=== PATIENT | male | born 1990 | race Caucasian/White ===

== ENCOUNTER 2018-02-18 20:11 | Observation (INO) | payer BC ==
[2018-02-18] MEDS ORDERED: SODIUM CHLORIDE 0.9% 500 ML INFUS.BAG IV ONE (20:24)
[2018-02-18] MEDS ORDERED: ACETAMINOPHEN 1000 MG/100 ML VIAL (NON FORMULARY) IVPB ONE (20:25)
--- NOTE | 2018-02-18 20:49 | PDOC ---
History of Present Illness - General Chief Complaint: Weakness Stated Complaint: COUGHING/FAINTING Time Seen by Provider: 02/18/18 20:23 History Source: Patient, Family Exam Limitations: No Limitations - History of Present Illness Initial Comments: This is a 27 YOM who p/w nonproductive cough x2 days with recurrent syncope tonight after coughing fits, now with 10/10 generalized headache which started abruptly. He denies any h/o similar headaches. His only recent medication has been diclofenac which he started in the past couple of days. He additionally notes intermittent SOB associated with the cough and syncope, as well as nausea and dry heaves tonight, but he denies any recent f/c, d/c, n/t/focal weakness, vision change, slurred speech, facial droop, neck pain, chest pain, palpitations , falls/injuries, or other symptoms. Past History - Past Medical History Allergies/Adverse Reactions: Allergies Allergy/AdvReac Type Severity Reaction Status Date / Time No Known Allergies Allergy Verified 02/18/18 23:58 Home Medications: Ambulatory Orders Fluconazole 0 mg PO DAILY 02/18/18 - Suicide/Smoking/Psychosocial Hx Smoking History: Never smoked Hx Alcohol Use: No Drug/Substance Use Hx: No Review of Systems - Review of Systems Able to Perform ROS?: Yes Constitutional: Yes: Malaise. No: Chills, Fever, Unexplained wgt Loss HEENTM: No: Nose Congestion, Throat Pain Respiratory: Yes: Cough, Shortness of Breath Cardiac (ROS): Yes: Syncope. No: Chest Pain, Palpitations ABD/GI: Yes: Nausea, Vomiting. No: Constipated, Diarrhea : No: Burning, Dysuria Musculoskeletal: No: Back Pain, Neck Pain Integumentary: No: Bruising, Rash Neurological: Yes: Headache. No: Numbness, Tingling, Weakness, Dizziness Endocrine: No: Unexplained Weight Gain, Unexplained Weight Loss *Physical Exam - Vital Signs Last Vital Signs Temp Pulse Resp BP Pulse Ox 98.8 F 89 20 135/81 99 02/18/18 20:22 02/18/18 20:22 02/18/18 20:22 02/18/18 20:22 02/18/18 20:22 - Physical Exam General Appearance: Yes: Nourished, Appropriately Dressed, Obese, Other ( nontoxic and well but a bit drowsy appearing adult male accompanied by family at bedside, answering questions appropriately initially with a bit of lag time between question and answer but this improves over the course of interview). No : Apparent Distress HEENT: positive: EOMI, LARON, Normal ENT Inspection, Normal Voice, Hearing Grossly Normal. negative: Scleral Icterus (R), Scleral Icterus (L), Nasal Congestion Neck: positive: Trachea midline, Supple. negative: Tender, Rigid Respiratory/Chest: positive: Lungs Clear, Normal Breath Sounds. negative: Respiratory Distress, Crackles, Rhonchi, Stridor, Wheezing Cardiovascular: positive: Regular Rhythm, Regular Rate, S1, S2, Edema. negative : JVD, Murmur Gastrointestinal/Abdominal: positive: Normal Bowel Sounds, Soft. negative: Tender, Organomegaly, Pulsatile Mass, Guarding Musculoskeletal: positive: Normal Inspection. negative: Decreased Range of Motion, Vertebral Tenderness Extremity: positive: Normal Capillary Refill, Normal Inspection, Normal Range of Motion. negative: Tender, Cyanosis Integumentary: positive: Normal Color, Dry, Warm. negative: Erythema, Rash, Bruising Neurologic: positive: surgery aide II-XII NML intact, Fully Oriented, Alert, Normal Mood/ Affect, Normal Response, Motor Strength 5/5. negative: EOM Palsy, Facial Droop , Numbness, Sensory Deficit, Confused, Disoriented Heart Score/ECG Review #1 NSR rate of 72 with normal axis and intervals, isolated TWI in III, T-wave flattening in aVF, no other ischemic ST-T changes, no other abnormalities noted. ED Treatment Course - LABORATORY CBC & Chemistry Diagram: 02/18/18 20:45 02/18/18 20:45 Medical Decision Making - Medical Decision Making Syncope: Adult male Pt p/w abrupt transient LOC with loss of postural tone, followed by spontaneous recovery, consistent with syncope. Initial Vital Signs Temp Pulse Resp BP Pulse Ox 98.8 F 89 20 135/81 99 02/18/18 20:22 02/18/18 20:22 02/18/18 20:22 02/18/18 20:22 02/18/18 20:22 Exam: As noted in Physical Exam section. DDX IBNLT: reflex (neurocardiogenic e.g. vasovagal; situational e.g. micturition /post-tussive/post-exercise; carotid sinus hypersensitivity), cardiovascular ( arrhythmia e.g. sick sinus syndrome, conduction abnormality e.g. SVT/WPW/Brugada /long QT/ventricular dysrhythmia, structural heart disease e.g. valvular disease /HOCM/left atrial myxoma/FL; PE; cardiac tamponade), orthostatic hypotension ( volume depletion e.g. hemorrhage/vomiting/diarrhea/diuretics; drugs e.g. vasodilators/eyssv-0-bqlcdrib/clonidine/phenothiazines like Haldol; autonomic failure e.g. spinal cord injury/DM neuropathy/Parkinsons), or other causes not true syncope d/t subsequent neuro deficit (TIA/CVA, SAH, seizure, metabolic/ electrolyte derangement e.g. DM/DKA tend to cause gradual slide into unconsciousness), infection/sepsis/vitals abnormalities, pulmonary HTN, etc. W/U ordered: EKG CXR Head CT CBCD CMP Mg Phos Cardiac Panel UA UCx FOBT TX ordered: IVF, O2, monitor EKG: Reviewed; results as noted in ECG Review section. CXR: Nothing acute CT Head: Nothing acute CTA Brain: Nothing acute Laboratory Tests 02/18/18 02/18/18 02/18/18 20:45 20:45 20:45 WBC 13.3 H RBC 4.62 Hgb 12.8 Hct 38.6 MCV 83.5 MCH 27.6 MCHC 33.1 RDW 14.2 Plt Count 260 MPV 8.6 Absolute Neuts (auto) 9.5 Neutrophils % 71.3 Lymphocytes % 19.5 Monocytes % 7.9 Eosinophils % 0.8 Basophils % 0.5 Nucleated RBC % 0 PT with INR 12.20 INR 1.08 Sodium 144 Potassium 3.7 Chloride 104 Carbon Dioxide 30 Anion Gap 10 BUN 22 H Creatinine 1.2 Creat Clearance w eGFR > 60 Random Glucose 97 Calcium 8.5 Total Bilirubin 0.3 AST 29 ALT 44 Alkaline Phosphatase 59 Total Protein 7.2 Albumin 4.1 Blood Type Antibody Screen 02/18/18 20:45 WBC RBC Hgb Hct MCV MCH MCHC RDW Plt Count MPV Absolute Neuts (auto) Neutrophils % Lymphocytes % Monocytes % Eosinophils % Basophils % Nucleated RBC % PT with INR INR Sodium Potassium Chloride Carbon Dioxide Anion Gap BUN Creatinine Creat Clearance w eGFR Random Glucose Calcium Total Bilirubin AST ALT Alkaline Phosphatase Total Protein Albumin Blood Type O POSITIVE Antibody Screen Negative Reassessment: Patient states feeling well but throat remains irritated/itchy. ADMIT The Pt is unsafe for discharge at this time given multiple reported syncopal episodes. They require further hospital observation, workup, and treatment. Microblog sent to [facility] for admission at 02/18/18 23:26. Decision to Admit order placed without attending name at 02/18/18 23:34. 02/19/18 00:56 Spoke with [facility] apparel trimmings sales representative Dr. Hernández. Patient admitted to [facility] under Dr. Cristina. Decision to Admit order finalized. *DC/Admit/Observation/Transfer Diagnosis at time of Disposition: Cough Syncope Qualifiers: Syncope type: unspecified Qualified Code(s): R55 - Syncope and collapse Nausea and vomiting Qualifiers: Vomiting type: unspecified Vomiting Intractability: non-intractable Qualified Code(s): R11.2 - Nausea with vomiting, unspecified - Discharge Dispostion Condition at time of disposition: Guarded Decision to Admit order: Yes - Referrals - Patient Instructions - Post Discharge Activity
[2018-02-18 20:58] LABS: BASO % 0.5 % (0-2.0); EOS % 0.8 % (0-4.5); HEMATOCRIT 38.6 % (35.4-49); HEMOGLOBIN 12.8 GM/dL (11.7-16.9); LYMPH % 19.5 % (8-40); MCH 27.6 pg (25.7-33.7); MCHC 33.1 g/dl (32.0-35.9); MEAN CELL VOLUME 83.5 fl (80-96); MEAN PLT VOLUME 8.6 fl (7.5-11.1); MONO % 7.9 % (3.8-10.2); NEUT % 71.3 % (42.8-82.8); PLATELET COUNT 260 K/MM3 (134-434); RBC 4.62 M/mm3 (4.00-5.60); RDW 14.2 % (11.9-15.9); WHITE BLOOD COUNT 13.3 K/mm3 (4.0-10.0)
[2018-02-18 21:08] LABS: INR 1.08 (0.83-1.09); PROTHROMBIN TIME (PATIENT) 12.2 SEC (9.7-13.0)
[2018-02-18 21:27] LABS: ALBUMIN 4.1 g/dl (3.4-5.0); ANION GAP 10 (8-16); BILIRUBIN,TOTAL 0.3 mg/dL (0.2-1.0); BLOOD UREA NITROGEN 22 mg/dL (7-18); CALCIUM 8.5 mg/dL (8.5-10.1); CHLORIDE 104 mmol/L (98-107); CO2 30 mmol/L (21-32); CREATININE 1.2 mg/dL (0.7-1.3); GLUCOSE,RANDOM 97 mg/dL (74-106); POTASSIUM 3.7 mmol/L (3.5-5.1); SGOT/AST 29 U/L (15-37); SGPT/ALT 44 U/L (12-78); SODIUM 144 mmol/L (136-145); TOT PROT 7.2 g/dl (6.4-8.2)
[2018-02-18 21:28] LABS: ALK PHOS 59 U/L (45-117)
[2018-02-18] MEDS ORDERED: ACETAMINOPHEN INJECTION 100 ML IVPB ONE (21:36)
--- NOTE | 2018-02-18 21:39 | PDOC ---
Attending Attestation - HPI HPI: 02/18/18 21:52 The patient is a 27 year old male, with no significant PMH, who presents to the emergency department with two days of productive cough and recurrent syncopal episodes tonight secondary to coughing fits. The patient also reports a sudden onset of diffuse headache rated 10/10, non radiating, beginning today. The patient states he has had intermittent shortness of breath secondary to the cough/ syncopal episodes as well as nausea without vomit. The patient denies chest pain, palpitations, and dizziness. Denies fever, chills, vomit, diarrhea and constipation. Denies dysuria, frequency, urgency and hematuria. Denies slurred speech, numbness, tingling or loss of sensation. Allergies: NKA - Physicial Exam PE: 02/18/18 21:53 GENERAL: Awake, alert, and fully oriented, in no acute distress HEAD: No signs of trauma EYES: PERRLA, EOMI, sclera anicteric, conjunctiva clear ENT: Auricles normal inspection, hearing grossly normal, nares patent, oropharynx clear without exudates. Moist mucosa NECK: Normal ROM, supple, no lymphadenopathy, JVD, or masses LUNGS: Breath sounds equal, clear to auscultation bilaterally. No wheezes, and no crackles HEART: Regular rate and rhythm, normal S1 and S2, no murmurs, rubs or gallops ABDOMEN: Soft, nontender, normoactive bowel sounds. No guarding, no rebound. No masses EXTREMITIES: Normal range of motion, no edema. No clubbing or cyanosis. No cords, erythema, or tenderness NEUROLOGICAL: Cranial nerves II through XII grossly intact. Normal speech, normal gait <Cullen Bae - Last Filed: 02/18/18 21:52> - Resident Resident Name: Mima Robison - ED Attending Attestation I have performed the following: I have examined & evaluated the patient, The case was reviewed & discussed with the resident, I agree w/resident's findings & plan - Medical Decision Making 02/18/18 21:[address] is normal, though there is some shift to the right side of the falx. We will send him for a CTA, as his labs have returned normal. 02/18/18 21:47 Pt has a WBC of 13 02/18/18 22:29 Patient Name: ALEJANDRA SALMERON THIS IS A PRELIMINARY REPORT FROM [facility] DATE OF SERVICE: 2018-02-18 21:09:00 IMAGES: [id number] Exam: CT head without IV contrast. Clinical indication:Sudden onset severe headache. Comparison:None available. Technique: Axial unenhanced CT images from the skull base through the brain were obtained followed by coronal and sagital reformats. Findings: The visualized bony structures are unremarkable. The visualized paranasal sinuses and mastoid air cells are clear. There is no evidence of intra-or extra-axial hemorrhage. The ventricles and basilar cisterns are unremarkable. There is no evidence of intracranial mass, acute infarct, or midline shift. Impression: Negative unenhanced CT of the brain. Individualized dose optimization techniques were used for this CT. THIS DOCUMENT HAS BEEN ELECTRONICALLY SIGNED 02/19/18 00:32 Pt's portable CXR normal. CTA brain: Patient Name: ALEJANDRA SALMERON THIS IS A PRELIMINARY REPORT FROM [facility] DATE OF SERVICE: 2018-02-18 21:59:45 IMAGES: [id number] EXAM: CT angiogram of the of the head with IV contrast. Clinical indication: Ruptured aneurysm. Comparison is made to the CT of the head dated the same day. Technique: Axial IV contrast-enhanced CT images through the head were obtained followed by coronal and sagittal reformats. In addition, maximum projection maximum intensity pixel multiplanar imaging of the intracranial arterial system was performed. Findings: The study is sub-optimal from a CT angiogram standpoint as most of the contrast is already into the venous system. The venous system demonstrates greater enhancement than the arterial system. The visualized portions of the bilateral internal carotid arteries are patent. Cannot evaluate the cavernous portions for evaluation of aneurysms. The visualized portions of the bilateral vertebral arteries are patent and codominant. The basilar artery is grossly unremarkable without obvious aneurysm. The bilateral posterior cerebral arteries are grossly unremarkable. The bilateral middle cerebral arteries are grossly unremarkable without obvious aneurysm. The bilateral anterior cerebral arteries are unremarkable without obvious aneurysm. There is no evidence of abnormal intracranial enhancement. There is no obvious evidence of intra-or extra-axial hemorrhage. Impression: 1. Severely limited study due to the phase of contrast enhancement. 2. No gross evidence of obvious intracranial aneurysm. If there is high clinical concern for aneurysm then a repeat CT angiogram with improved bolus timing is recommended. Pt will be admitted to observation for repeat brief syncopal episodes. <Breann Babb - Last Filed: 02/19/18 00:35> Attestations - Attestations 02/18/18 21:53 Documentation prepared by Cullen Bae, acting as medical billing specialist for Breann Babb MD. <Cullen Bae - Last Filed: 02/18/18 21:52>
--- NOTE | 2018-02-19 00:09 | PN ---
Teaching Attending Note Name of Resident: Vignesh Killian ATTENDING PHYSICIAN STATEMENT I saw and evaluated the patient. I reviewed the resident's note and discussed the case with the resident. I agree with the resident's findings and plan as documented. SUBJECTIVE: Patient is a 27 year old man who presents with nonproductive cough for 2 days associated with recurrent syncope tonight after coughing fits. Also now has 10/ 10 generalized headache which started abruptly. He denies any history of similar headaches. Started having runny nose 4 days ago, followed by sore throat and then the cough. His only recent medication has been diclofenac which he started in the past couple of days. He additionally notes intermittent SOB associated with the cough and syncope, as well as nausea and dry heaves tonight. He had the first episode of syncope 4 years. His father had a similar problem that also included syncope. No recent foreign travels or sick contacts. He does not smoke but his room mate smokes. Denies focal weakness, vision change , slurred speech, facial droop, neck pain, chest pain, or palpitations. OBJECTIVE: Alert and in no acute distress. Obese Vital Signs Period Temp Pulse Resp BP Sys/Rodríguez Pulse Ox Last 24 Hr 98.8 F 89 20 135/81 99 HEENT: No Jaundice, eye redness or discharge, PERRLA, EOMI. Normocephalic, atraumatic. External ears are normal and hearing is grossly intact. No nasal discharge. Neck: Supple, nontender. No palpable adenopathy or thyromegaly. No JVD Chest: Good effort. Clear to auscultation and percussion. Heart: Regular. No S3, rub or murmur Abdomen: Not distended, soft, nontender and no HSM. No rebound or guarding. Normoactive bowel sounds. Ext: Peripheral pulses intact. No leg edema. Skin: Warm and dry. No petechiae, rash or ecchymosis. Neuro: Alert. Oriented x3. CN 2-12 grossly intact. Sensation grossly intact in all four extremities and DTR are symmetric. Home Medications Medication Instructions Recorded Fluconazole 0 mg PO DAILY 02/18/18 Abnormal Lab Results 02/18/18 02/18/18 20:45 20:45 WBC 13.3 H BUN 22 H ASSESSMENT AND PLAN: 1. Syncope - Etiology unclear, but appears to be vasovagal. Head CT scan is negative. CXR shows cardiomegaly, increased interstitial marking, RLL infiltrate and blunted left CP angle. EKG does not show any signficant abnormality. Will get chest CT to rule out a precipitating chest infection, ECHO , EEG and monitor on telemetry. Carotid doppler, Brain MRI/MRA, neurology and cardiology consults. 2. Exposure to Tobacco second hand smoke - Patient counseled on the risks of second hand smoke exposure and urged to avoid it by any means necessary. 3. Obesity - Will provide patient all the necessary assistance , counseling and positive reinforcement to facilitate weight loss. Consult scientist immunology. 4. DVT prophylaxis - Lovenox 40 mg SQ q 24 hours. 5. Advance directives - Full code
[2018-02-19 00:31] LABS: COCAINE, UR NEGATIVE ng/ml (CUTOFF=300); METHADONE, UR NEGATIVE ng/ml (CUTOFF=300); OPIATES, URI NEGATIVE ng/ml (CUTOFF=300); PHENCYCLIDINE,URINE NEGATIVE ng/ml (CUTOFF=25); URINE AMPHETAMINES NEGATIVE ng/ml (CUTOFF=500); URINE BARBITURATES NEGATIVE ng/ml (CUTOFF=200); URINE BENZODIAZEPINES NEGATIVE ng/ml (CUTOFF=200)
--- NOTE | 2018-02-19 02:24 | HP ---
CHIEF COMPLAINT: PCP: HISTORY OF PRESENT ILLNESS: 27 y/o M w/ PMH of long hx of syncopal episodes associated w/ cough, p/w productive cough, sore throat, subj fevers, chills, and a few episodes of NBNB emesis x3 days with recurrent syncope specifically occurring after coughing. Tonight has had 11 episodes each one lasing a few seconds as noted by family members. Has been having multiple coughing fits and tonight having generalized headache which started abruptly. He denies any h/o similar headaches. Also experiencing intermittent SOB associated with the cough and syncope, as well as nausea and dry heaves tonight, but he denies any CP, diarrhea, abd pain, urinary sxs, focal weakness, vision change, slurred speech, facial droop, neck pain Pt endorses a long hx of passing out w/ coughing fits, 1st time ~4years ago, and states that it runs in his family, both his dad and sister get it. His only recent medication has been diclofenac which he says he finished. Of note, pt says 3 wks ago he went to hospital in [place] after having had episode of dark bloody vomit. pt said he was working a lot that weekend and didnt have time to eat food but drank pplenty of liquids. he woke up vomited and then came to hospital. He says his FOBT was neg and they sent him home telling him he probably damaged a blood vessel and that he was throwing up dried blood. Pt endorses chronic heartburn. 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 HEENT: NCAT, PERRL, extraocular movements intact, sclera anicteric, conjunctiva clear. MMM NECK: Normal range of motion, supple without lymphadenopathy, JVD, or masses. LUNGS: CTAB. No wheezes. No accessory muscle use. HEART: RRR, normal S1 and S2 without m/r/g ABDOMEN: Soft, NTND +BS, no guarding, no rebound, no masses. MUSCULOSKELETAL: Normal range of motion at all joints. No bony deformities or tenderness. UPPER EXTREMITIES: 2+ pulses, warm, well-perfused. No cyanosis. No clubbing. No peripheral edema. LOWER EXTREMITIES: 2+ pulses, warm, well-perfused. No calf tenderness. no edema NEUROLOGICAL: Cranial nerves II-XII intact. Normal speech. gait not observed PSYCHIATRIC: Cooperative. Good eye contact. Appropriate mood and affect. SKIN: Warm, dry, normal turgor, no rashes or lesions noted, normal capillary refill. Laboratory Results - last 24 hr 02/18/18 02/18/18 02/18/18 20:45 20:45 20:45 WBC 13.3 H RBC 4.62 Hgb 12.8 Hct 38.6 MCV 83.5 MCH 27.6 MCHC 33.1 RDW 14.2 Plt Count 260 MPV 8.6 Absolute Neuts (auto) 9.5 Neutrophils % 71.3 Lymphocytes % 19.5 Monocytes % 7.9 Eosinophils % 0.8 Basophils % 0.5 Nucleated RBC % 0 PT with INR 12.20 INR 1.08 Sodium 144 Potassium 3.7 Chloride 104 Carbon Dioxide 30 Anion Gap 10 BUN 22 H Creatinine 1.2 Creat Clearance w eGFR > 60 Random Glucose 97 Calcium 8.5 Total Bilirubin 0.3 AST 29 ALT 44 Alkaline Phosphatase 59 Total Protein 7.2 Albumin 4.1 Opiates Screen Methadone Screen Barbiturate Screen Phencyclidine Screen Ur Amphetamines Screen MDMA (Ecstasy) Screen Benzodiazepines Screen Cocaine Screen U Marijuana (THC) Screen Blood Type Antibody Screen 02/18/18 02/18/18 20:45 23:50 WBC RBC Hgb Hct MCV MCH MCHC RDW Plt Count MPV Absolute Neuts (auto) Neutrophils % Lymphocytes % Monocytes % Eosinophils % Basophils % Nucleated RBC % PT with INR INR Sodium Potassium Chloride Carbon Dioxide Anion Gap BUN Creatinine Creat Clearance w eGFR Random Glucose Calcium Total Bilirubin AST ALT Alkaline Phosphatase Total Protein Albumin Opiates Screen Negative Methadone Screen Negative Barbiturate Screen Negative Phencyclidine Screen Negative Ur Amphetamines Screen Negative MDMA (Ecstasy) Screen Negative Benzodiazepines Screen Negative Cocaine Screen Negative U Marijuana (THC) Screen Negative Blood Type O POSITIVE Antibody Screen Negative ASSESSMENT/PLAN: 27 y/o M w/ PMH of syncopal episodes associated w/ cough p/w productive cough, sore throat, subj fevers and a few episodes of NBNB emesis x3 days with recurrent syncope specifically occurring after coughing #Syncope - unclear etiology, but likely vasovagal. CXR shows cardiomegaly, increased interstitial marking, RLL infiltrate and blunted angles. Head CT scan is negative. EKG does not show any significant abnormality. -chest CT to r/o infectious cause -ECHO -monitor on telemetry. -Carotid doppler -neurology and cardiology consults. -may consider Brain MRI/MRA -may consider EEG GERD -protonix RON? - poor PO intake -gentle hydration IV NS 75cc/hr #Obesity -provide assistance, counseling and positive reinforcement to facilitate weight loss. -Consult manual equipment mechanic #FEN -gentle hydration IV NS 75cc/hr -replete lytes as needed -regular diet #DVTppx SQH 5000U TID #Dispo -admit to tele obs -Full code Visit type - Emergency Visit Emergency Visit: Yes ED Registration Date: 02/18/18 Care time: The patient presented to the Emergency Department on the above date and was hospitalized for further evaluation of their emergent condition. - New Patient This patient is new to me today: Yes Date on this admission: 02/19/18 - Critical Care Critical Care patient: No Hospitalist Screening - Colonoscopy Questionnaire Colonoscopy Questionnaire: Colonoscopy Questionnaire - Patient: 50 - 75 years old and never had a screening colonoscopy: Unknown History of colon or rectal polyps, or CA: Unknown History of IBD, Crohn's disease or UC: Unknown History of abdominal radiation therapy as a child: Unknown - Relative: 1 with colon or rectal CA, or polyps at age 60 or younger: Unknown Colon or rectal CA diagnosed at age 45 or younger: Unknown Multiple relatives with colon or rectal CA: Unknown - Outcome: Screening Result: Negative Screen
[2018-02-19] MEDS ORDERED: HEPARIN NA (PORCINE) 5,000 UNITS/ML 1ML VIAL ONE (02:31)
[2018-02-19] MEDS: HEPARIN NA (PORCINE) 5,000 UNITS/ML 1ML VIAL SQ SCH ×3 (02:43→21:33)
[2018-02-19] MEDS: SODIUM CHLORIDE 1,000 ML IV SCH ×2 (02:43→17:12)
[2018-02-19 06:43] LABS: INR 1.04 (0.83-1.09); PROTHROMBIN TIME (PATIENT) 11.8 SEC (9.7-13.0)
[2018-02-19 06:46] LABS: ACTIVATED PTT 28.9 SECONDS (25.2-36.5)
[2018-02-19 06:58] LABS: ALBUMIN 3.7 g/dl (3.4-5.0); ALK PHOS 65 U/L (45-117); ANION GAP 6 (8-16); BILIRUBIN,TOTAL 0.3 mg/dL (0.2-1.0); BLOOD UREA NITROGEN 16 mg/dL (7-18); CALCIUM 8.2 mg/dL (8.5-10.1); CHLORIDE 104 mmol/L (98-107); CO2 32 mmol/L (21-32); CREATININE 1.2 mg/dL (0.7-1.3); GLUCOSE,RANDOM 109 mg/dL (74-106); MAGNESIUM 2.2 mg/dL (1.8-2.4); POTASSIUM 3.5 mmol/L (3.5-5.1); SGOT/AST 32 U/L (15-37); SGPT/ALT 46 U/L (12-78); SODIUM 142 mmol/L (136-145); TOT PROT 6.9 g/dl (6.4-8.2)
--- NOTE | 2018-02-19 08:24 | CON.CARD ---
Consult Consult Specialty:: Cardiology Reason for Consultation:: syncope - History of Present Illness History of Present Illness: 27 y/o M w/ PMH of long hx of syncopal episodes associated w/ cough, p/w productive cough, sore throat, subj fevers, chills, and a few episodes of NBNB emesis x3 days with recurrent syncope specifically occurring after coughing. Tonight has had 11 episodes each one lasing a few seconds as noted by family members. Has been having multiple coughing fits and tonight having generalized headache which started abruptly. He denies any h/o similar headaches. Also experiencing intermittent SOB associated with the cough and syncope, as well as nausea and dry heaves tonight, but he denies any CP, diarrhea, abd pain, urinary sxs, focal weakness, vision change, slurred speech, facial droop, neck pain Pt endorses a long hx of passing out w/ coughing fits, 1st time ~4years ago, and states that it runs in his family, both his dad and sister get it. His only recent medication has been diclofenac which he says he finished. Of note, pt says 3 wks ago he went to hospital in [place] after having had episode of dark bloody vomit. pt said he was working a lot that weekend and didnt have time to eat food but drank pplenty of liquids. he woke up vomited and then came to hospital. He says his FOBT was neg and they sent him home telling him he probably damaged a blood vessel and that he was throwing up dried blood. Pt endorses chronic heartburn. - History Source History Provided By: Patient, Medical Record - Alcohol/Substance Use Hx Alcohol Use: No - Smoking History Smoking history: Never smoked Home Medications - Allergies Allergies/Adverse Reactions: Allergies Allergy/AdvReac Type Severity Reaction Status Date / Time No Known Allergies Allergy Verified 02/18/18 23:58 - Home Medications Home Medications: Ambulatory Orders Fluconazole 0 mg PO DAILY 02/18/18 Review of Systems - Review of Systems Constitutional: reports: No Symptoms Eyes: reports: No Symptoms HENT: reports: No Symptoms Neck: reports: No Symptoms Cardiovascular: reports: No Symptoms Respiratory: reports: Cough Gastrointestinal: reports: No Symptoms Genitourinary: reports: No Symptoms Breasts: reports: No Symptoms Reported Musculoskeletal: reports: No Symptoms Integumentary: reports: No Symptoms Neurological: reports: Syncope Endocrine: reports: No Symptoms Hematology/Lymphatic: reports: No Symptoms Psychiatric: reports: No Symptoms Vital Signs: Vital Signs Temperature 98.8 F 02/18/18 20:22 Pulse Rate 89 02/18/18 20:22 Respiratory Rate 20 02/18/18 20:22 Blood Pressure 135/81 02/18/18 20:22 O2 Sat by Pulse Oximetry (%) 99 02/18/18 20:22 Constitutional: Yes: Well Nourished, No Distress, Calm Eyes: Yes: WNL, Conjunctiva Clear, EOM Intact HENT: Yes: WNL, Atraumatic, Normocephalic Neck: Yes: WNL, Supple, Trachea Midline Respiratory: Yes: WNL, Regular, CTA Bilaterally Gastrointestinal: Yes: WNL, Normal Bowel Sounds Renal/: Yes: WNL Cardiovascular: Yes: WNL, Regular Rate and Rhythm Musculoskeletal: Yes: WNL Extremities: Yes: WNL Integumentary: Yes: WNL Neurological: Yes: WNL, Alert, Oriented ...Motor Strength: WNL Psychiatric: Yes: WNL, Alert, Oriented - Other Data Labs, Other Data: CBC, BMP 02/18/18 20:45 02/19/18 06:00 INR, PTT INR 1.04 (0.83-1.09) 02/19/18 06:00 Laboratory Tests 02/18/18 02/18/18 02/18/18 20:45 20:45 20:45 WBC 13.3 H RBC 4.62 Hgb 12.8 Hct 38.6 MCV 83.5 MCH 27.6 MCHC 33.1 RDW 14.2 Plt Count 260 MPV 8.6 Absolute Neuts (auto) 9.5 Neutrophils % 71.3 Lymphocytes % 19.5 Monocytes % 7.9 Eosinophils % 0.8 Basophils % 0.5 Nucleated RBC % 0 PT with INR 12.20 INR 1.08 PTT (Actin FS) Sodium 144 Potassium 3.7 Chloride 104 Carbon Dioxide 30 Anion Gap 10 BUN 22 H Creatinine 1.2 Creat Clearance w eGFR > 60 Random Glucose 97 Calcium 8.5 Phosphorus Magnesium Total Bilirubin 0.3 AST 29 ALT 44 Alkaline Phosphatase 59 Total Protein 7.2 Albumin 4.1 Opiates Screen Methadone Screen Barbiturate Screen Phencyclidine Screen Ur Amphetamines Screen MDMA (Ecstasy) Screen Benzodiazepines Screen Cocaine Screen U Marijuana (THC) Screen Blood Type Antibody Screen 02/18/18 02/18/18 02/19/18 20:45 23:50 06:00 WBC RBC Hgb Hct MCV MCH MCHC RDW Plt Count MPV Absolute Neuts (auto) Neutrophils % Lymphocytes % Monocytes % Eosinophils % Basophils % Nucleated RBC % PT with INR 11.80 INR 1.04 PTT (Actin FS) 28.9 Sodium Potassium Chloride Carbon Dioxide Anion Gap BUN Creatinine Creat Clearance w eGFR Random Glucose Calcium Phosphorus Magnesium Total Bilirubin AST ALT Alkaline Phosphatase Total Protein Albumin Opiates Screen Negative Methadone Screen Negative Barbiturate Screen Negative Phencyclidine Screen Negative Ur Amphetamines Screen Negative MDMA (Ecstasy) Screen Negative Benzodiazepines Screen Negative Cocaine Screen Negative U Marijuana (THC) Screen Negative Blood Type O POSITIVE Antibody Screen Negative 02/19/18 06:00 WBC RBC Hgb Hct MCV MCH MCHC RDW Plt Count MPV Absolute Neuts (auto) Neutrophils % Lymphocytes % Monocytes % Eosinophils % Basophils % Nucleated RBC % PT with INR INR PTT (Actin FS) Sodium 142 Potassium 3.5 Chloride 104 Carbon Dioxide 32 Anion Gap 6 L BUN 16 Creatinine 1.2 Creat Clearance w eGFR > 60 Random Glucose 109 H Calcium 8.2 L Phosphorus 4.0 Magnesium 2.2 Total Bilirubin 0.3 AST 32 ALT 46 Alkaline Phosphatase 65 Total Protein 6.9 Albumin 3.7 Opiates Screen Methadone Screen Barbiturate Screen Phencyclidine Screen Ur Amphetamines Screen MDMA (Ecstasy) Screen Benzodiazepines Screen Cocaine Screen U Marijuana (THC) Screen Blood Type Antibody Screen Imaging - Results Chest X-ray: Image Reviewed (no i/e) EKG: Image Reviewed (nsr) Problem List - Problems (1) Cough Code(s): R05 - COUGH (2) Nausea and vomiting Code(s): R11.2 - NAUSEA WITH VOMITING, UNSPECIFIED Qualifiers: Vomiting type: unspecified Vomiting Intractability: non-intractable Qualified Code(s): R11.2 - Nausea with vomiting, unspecified (3) Syncope Code(s): R55 - SYNCOPE AND COLLAPSE Qualifiers: Syncope type: unspecified Qualified Code(s): R55 - Syncope and collapse Assessment/Plan cough induced syncopy chronic cough plan telemetry 24 holter echo neuro eval pulmonary eval
--- NOTE | 2018-02-19 08:46 | PN ---
Physical Exam: SUBJECTIVE: Patient seen and examined, no events overnight. Reports chronic episodes of coughing non productive, usually triggered by laughing, unclear relation with food, but has had chronic heartburn and has been eating 4 heavy meals. Episodes of syncope are transient in the setting of coughing paroxysm lasting a few seconds. no chest pain, dizziness, palpitations around the episode. Occasional episodes of vomiting with severe coughing bouts, Had an episode of blood streaking when was told was from severe coughing. OBJECTIVE: Vital Signs Period Temp Pulse Resp BP Sys/Rodríguez Pulse Ox Last 24 Hr 98.8 F 89 20 135/81 99 GENERAL: sitting in bed in no acute distress Witnessed coughing paroxysm with scant yellowish sputum Chest; CTAB, no rales or wheezing Abdomen:soft, NT, ND, positive bowel sounds Extremities: no edema Neuro: AAOX3, power 5/5, sensation intact and symmetric to light touch, EOMI, PERRL, no pronator drift, DTR symmetric, no abnormalities on exam Laboratory Results - last 24 hr 02/18/18 02/18/18 02/18/18 20:45 20:45 20:45 WBC 13.3 H RBC 4.62 Hgb 12.8 Hct 38.6 MCV 83.5 MCH 27.6 MCHC 33.1 RDW 14.2 Plt Count 260 MPV 8.6 Absolute Neuts (auto) 9.5 Neutrophils % 71.3 Lymphocytes % 19.5 Monocytes % 7.9 Eosinophils % 0.8 Basophils % 0.5 Nucleated RBC % 0 PT with INR 12.20 INR 1.08 PTT (Actin FS) Sodium 144 Potassium 3.7 Chloride 104 Carbon Dioxide 30 Anion Gap 10 BUN 22 H Creatinine 1.2 Creat Clearance w eGFR > 60 Random Glucose 97 Calcium 8.5 Phosphorus Magnesium Total Bilirubin 0.3 AST 29 ALT 44 Alkaline Phosphatase 59 Total Protein 7.2 Albumin 4.1 Opiates Screen Methadone Screen Barbiturate Screen Phencyclidine Screen Ur Amphetamines Screen MDMA (Ecstasy) Screen Benzodiazepines Screen Cocaine Screen U Marijuana (THC) Screen Blood Type Antibody Screen 02/18/18 02/18/18 02/19/18 20:45 23:50 06:00 WBC RBC Hgb Hct MCV MCH MCHC RDW Plt Count MPV Absolute Neuts (auto) Neutrophils % Lymphocytes % Monocytes % Eosinophils % Basophils % Nucleated RBC % PT with INR 11.80 INR 1.04 PTT (Actin FS) 28.9 Sodium Potassium Chloride Carbon Dioxide Anion Gap BUN Creatinine Creat Clearance w eGFR Random Glucose Calcium Phosphorus Magnesium Total Bilirubin AST ALT Alkaline Phosphatase Total Protein Albumin Opiates Screen Negative Methadone Screen Negative Barbiturate Screen Negative Phencyclidine Screen Negative Ur Amphetamines Screen Negative MDMA (Ecstasy) Screen Negative Benzodiazepines Screen Negative Cocaine Screen Negative U Marijuana (THC) Screen Negative Blood Type O POSITIVE Antibody Screen Negative 02/19/18 06:00 WBC RBC Hgb Hct MCV MCH MCHC RDW Plt Count MPV Absolute Neuts (auto) Neutrophils % Lymphocytes % Monocytes % Eosinophils % Basophils % Nucleated RBC % PT with INR INR PTT (Actin FS) Sodium 142 Potassium 3.5 Chloride 104 Carbon Dioxide 32 Anion Gap 6 L BUN 16 Creatinine 1.2 Creat Clearance w eGFR > 60 Random Glucose 109 H Calcium 8.2 L Phosphorus 4.0 Magnesium 2.2 Total Bilirubin 0.3 AST 32 ALT 46 Alkaline Phosphatase 65 Total Protein 6.9 Albumin 3.7 Opiates Screen Methadone Screen Barbiturate Screen Phencyclidine Screen Ur Amphetamines Screen MDMA (Ecstasy) Screen Benzodiazepines Screen Cocaine Screen U Marijuana (THC) Screen Blood Type Antibody Screen Active Medications Generic Name Dose Route Start Last Admin Trade Name Freq PRN Reason Stop Dose Admin Heparin Sodium (Porcine) 5,000 unit 02/19/18 03:00 02/19/18 02:43 Heparin - SQ 5,000 unit TID EMANI Administration Sodium Chloride 1,000 mls @ 75 mls/hr 02/19/18 02:15 02/19/18 02:43 Normal Saline - IV 75 mls/hr ASDIR EMANI Administration Home Medications Medication Instructions Recorded Fluconazole 0 mg PO DAILY 02/18/18 ASSESSMENT/PLAN: 27 yom with chronic cough, GERD, syncopal episodes in the setting of severe coughing paroxysms. -Syncope, in the setting of severe coughing paroxysms, transient, suspect cough syncope from high vagal tone (similar family history in father and sister) -Chronic cough, ?in the setting of GERD Plan: Syncopal events likely from cough paroxysms and strong vagal tone. Low suspicion for neurological or cardiac etiology. 2Decho/cardiology/neuro consulted for recs. ?Underlying GERD contributory to chronic cough. Start on protonix 40 mg BID. FOllow up CT chest. Pulmonary consult to address chronic cough. IVF DVTPPX Dispo in 24 hours if work up unrevealing and no new concerns. patient advised on outpatient GI and likely pulmonary follow up after dc Also address outpatient sleep study. Visit type - Emergency Visit Emergency Visit: Yes ED Registration Date: 02/18/18 Care time: The patient presented to the Emergency Department on the above date and was hospitalized for further evaluation of their emergent condition. - New Patient This patient is new to me today: Yes Date on this admission: 02/19/18 - Critical Care Critical Care patient: No - Discharge Referral Referred to [facility] Med [facility] No
--- NOTE | 2018-02-19 08:57 | EKG ---
Test Reason : Blood Pressure : / mmHG Vent. Rate : 072 BPM Atrial Rate : 072 BPM P-R Int : 166 ms QRS Dur : 102 ms QT Int : 392 ms P-R-T Axes : 048 -04 013 degrees QTc Int : 429 ms NORMAL SINUS RHYTHM NORMAL ECG NO PREVIOUS ECGS AVAILABLE Confirmed by RAY ROMERO, KEVIN ([id number]) on 02/19/2018 8:57:04 AM Referred By: Confirmed By:KEVIN BELL MD
[2018-02-19] MEDS ORDERED: POTASSIUM CHLORIDE TABS 20 MEQ TABLET.ER (FP) PO ONE (09:45)
--- NOTE | 2018-02-19 09:56 | PN ---
Progress Note, Physician History of Present Illness: 27 y/o M w/ PMH of long hx of syncopal episodes associated w/ cough, p/w productive cough, sore throat, subj fevers, chills, and a few episodes of NBNB emesis x3 days with recurrent syncope specifically occurring after coughing. Tonight has had 11 episodes each one lasing a few seconds as noted by family members. Has been having multiple coughing fits and tonight having generalized headache which started abruptly. He denies any h/o similar headaches. Also experiencing intermittent SOB associated with the cough and syncope, as well as nausea and dry heaves tonight, but he denies any CP, diarrhea, abd pain, urinary sxs, focal weakness, vision change, slurred speech, facial droop, neck pain Pt endorses a long hx of passing out w/ coughing fits, 1st time ~4years ago, and states that it runs in his family, both his dad and sister get it. His only recent medication has been diclofenac which he says he finished. Of note, pt says 3 wks ago he went to hospital in [place] after having had episode of dark bloody vomit. pt said he was working a lot that weekend and didnt have time to eat food but drank pplenty of liquids. he woke up vomited and then came to hospital. He says his FOBT was neg and they sent him home telling him he probably damaged a blood vessel and that he was throwing up dried blood. Pt endorses chronic heartburn. - Current Medication List Current Medications: Active Medications Heparin Sodium (Porcine) (Heparin -) 5,000 unit SQ TID [facility] Last Admin: 02/19/18 02:43 Dose: 5,000 unit Sodium Chloride (Normal Saline -) 1,000 mls @ 75 mls/hr IV ASDIR [facility] Last Admin: 02/19/18 02:43 Dose: 75 mls/hr Pantoprazole Sodium (Protonix -) 40 mg PO BID [facility] - Objective Vital Signs: Vital Signs Temperature 98.8 F 02/18/18 20:22 Pulse Rate 89 02/18/18 20:22 Respiratory Rate 20 02/18/18 20:22 Blood Pressure 135/81 02/18/18 20:22 O2 Sat by Pulse Oximetry (%) 99 02/18/18 20:22 Eyes: Yes: WNL, Conjunctiva Clear, EOM Intact HENT: Yes: WNL, Atraumatic, Normocephalic Neck: Yes: WNL, Supple, Trachea Midline Cardiovascular: Yes: WNL, Regular Rate and Rhythm Respiratory: Yes: WNL, Regular, CTA Bilaterally Gastrointestinal: Yes: WNL, Normal Bowel Sounds Genitourinary: Yes: WNL Musculoskeletal: Yes: WNL Extremities: Yes: WNL Edema: No Integumentary: Yes: WNL Neurological: Yes: WNL, Alert, Oriented ...Motor Strength: WNL Psychiatric: Yes: WNL Labs: CBC, BMP 02/18/18 20:45 02/19/18 06:00 INR, PTT INR 1.04 (0.83-1.09) 02/19/18 06:00 Problem List - Problems (1) Cough Code(s): R05 - COUGH (2) Nausea and vomiting Code(s): R11.2 - NAUSEA WITH VOMITING, UNSPECIFIED Qualifiers: Vomiting type: unspecified Vomiting Intractability: non-intractable Qualified Code(s): R11.2 - Nausea with vomiting, unspecified (3) Syncope Code(s): R55 - SYNCOPE AND COLLAPSE Qualifiers: Syncope type: unspecified Qualified Code(s): R55 - Syncope and collapse Assessment/Plan cough induced syncopy chronic cough plan telemetry 24 holter echo neuro eval pulmonary eval
[2018-02-19] MEDS ORDERED: PANTOPRAZOLE 20 MG TABLET (FP) PO SCH (10:00)
[2018-02-19] MEDS ORDERED: POTASSIUM CHLORIDE TABS 10 MEQ TABLET.ER (FP) ONE (10:09)
[2018-02-19] MEDS: PANTOPRAZOLE 40 MG TABLET (FP) PO SCH ×2 (10:15→21:33)
[2018-02-19 11:05] VITALS: BMI 38.0
--- NOTE | 2018-02-19 13:38 | CON.NEURO ---
Consult Consult Specialty:: Joycelyn Referred by:: ED Reason for Consultation:: Syncopy - History of Present Illness History of Present Illness: 27 years old man with no PMH presented with fainting spells Saw the patient in the ER Patient had a total of nearly 7 episodes Associated with Couch No seizure like activity No urinary inconteince No postictal There is no family hsitory of seizure - History Source History Provided By: Patient Limitations to Obtaining History: No Limitations - Alcohol/Substance Use Hx Alcohol Use: No - Smoking History Smoking history: Never smoked Have you smoked in the past 12 months: No Home Medications - Allergies Allergies/Adverse Reactions: Allergies Allergy/AdvReac Type Severity Reaction Status Date / Time No Known Allergies Allergy Verified 02/18/18 23:58 - Home Medications Home Medications: Ambulatory Orders Fluconazole 0 mg PO DAILY 02/18/18 Family Disease History - Family Disease History Family History: Denies Review of Systems - Review of Systems Constitutional: reports: No Symptoms Eyes: reports: No Symptoms Neurological: reports: No Symptoms Physical Exam-Neuro Vital Signs: Vital Signs Temperature 98 F 02/19/18 10:55 Pulse Rate 78 02/19/18 10:55 Respiratory Rate 18 02/19/18 10:55 Blood Pressure 130/79 02/19/18 10:55 O2 Sat by Pulse Oximetry (%) 99 02/18/18 20:22 Constitutional: Yes: Well Nourished Neck: Yes: WNL Cardiovascular: Yes: WNL Labs: CBC, BMP 02/18/18 20:45 02/19/18 06:00 INR, PTT INR 1.04 (0.83-1.09) 02/19/18 06:00 - Neuro Exam Level Of Consciousness: Yes: Oriented to Person, Oriented to Place, Oriented to Time Eyes: Yes: PERRLA Speech: WNL Dominant Hand: Right Cranial Nerves II-XII Intact: Yes Gag: Present DTR's: 1+ Left Bicep, 1+ Right Bicep, 1+ Left Brachioradialis, 1+ Right Brachioradialis Response to light touch: Normal Response to pain prick: Normal Response to temperature: Normal Response to vibration: Normal (General: Pleasant patient in no apparent distress cooperating with the exam normal appearance. ) Imaging - Results Cat Scan: Image Reviewed Problem List - Problems (1) Syncope Assessment/Plan: Tussive Syncopy 1. Neuro checks 2. EEG 3. NO MRI will do as OP please Thank you for [facility] referral Code(s): R55 - SYNCOPE AND COLLAPSE Qualifiers: Syncope type: unspecified Qualified Code(s): R55 - Syncope and collapse
--- NOTE | 2018-02-19 14:08 | CON.PULM ---
Consult Consult Specialty:: PULMONARY Referred by:: Dr. Mahcado Reason for Consultation:: cough - History of Present Illness Chief Complaint: syncope History of Present Illness: 27yo male without significant past medical history who presents after syncopal episode after a coughing fit. States that he has been experiencing these episodes for the past 2 years. Cough is usually nonproductive but sometimes with clear sputum. Also experiences dyspnea with exertion, chest tightness and wheezing, especially when he has an upper respiratory tract infection. Does not remember if he had childhood asthma or bronchiolitis but asthma runs in the family on both sides. Coughing fits sometimes can last up to a minute and recently has been occurring more frequently. The trigger this time was he was at his mother's house who has multiple animals and he was trying to replace her rug. 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 No factory or construction jobs. No pets at his personal home, he is visiting from [place]. - History Source History Provided By: Patient, Significant Other, Medical Record Limitations to Obtaining History: No Limitations - Alcohol/Substance Use Hx Alcohol Use: No - Smoking History Smoking history: Never smoked Have you smoked in the past 12 months: No Home Medications - Allergies Allergies/Adverse Reactions: Allergies Allergy/AdvReac Type Severity Reaction Status Date / Time No Known Allergies Allergy Verified 02/18/18 23:58 - Home Medications Home Medications: Ambulatory Orders Fluconazole 0 mg PO DAILY 02/18/18 Review of Systems - Review of Systems Constitutional: denies: Chills, Fever, Weakness Eyes: denies: Recent Change in Vision HENT: reports: Throat Pain. denies: Nasal Congestion Neck: denies: Stiffness, Tenderness Cardiovascular: reports: Shortness of Breath. denies: Chest Pain, Edema, Palpitations Respiratory: reports: Cough, SOB on Exertion, Wheezing. denies: Hemoptysis Gastrointestinal: reports: Nausea, Vomiting. denies: Abdominal Pain Genitourinary: denies: Dysuria, Hematuria Neurological: reports: Headache. denies: Dizziness Endocrine: denies: Unexplained Weight Loss Physical Exam Vital Sings: Vital Signs Temperature 98 F 02/19/18 10:55 Pulse Rate 78 02/19/18 10:55 Respiratory Rate 18 02/19/18 10:55 Blood Pressure 130/79 02/19/18 10:55 O2 Sat by Pulse Oximetry (%) 99 02/18/18 20:22 Constitutional: Yes: Calm Eyes: Yes: Conjunctiva Clear, EOM Intact HENT: Yes: Atraumatic, Normocephalic Neck: Yes: Supple, Trachea Midline Cardiovascular: Yes: Regular Rate and Rhythm Respiratory: Yes: Regular, CTA Bilaterally ...Clubbing: No Gastrointestinal: Yes: Normal Bowel Sounds, Soft. No: Tenderness Edema: No Neurological: Yes: Alert, Oriented Labs: CBC, BMP 02/18/18 20:45 02/19/18 06:00 Imaging - Results Chest X-ray: Report Reviewed, Image Reviewed Cat Scan: Report Reviewed, Image Reviewed (elevated right hemidiaphragm, minimal bibasilar atelectasis) Problem List - Problems (1) Cough Code(s): R05 - COUGH (2) Syncope Code(s): R55 - SYNCOPE AND COLLAPSE Qualifiers: Syncope type: unspecified Qualified Code(s): R55 - Syncope and collapse Assessment/Plan Syncopal episodes likely from prolonged coughing fit Likely has Cough Variant Asthma - would start high dose ICS/LABA daily - start singulair - inhaled bronchodilators - will need outpt PFTs and allergy testing - DVT prophylaxis - work up can continue as outpt from pulmonary standpoint Thank you for this consult Kennedy Montero MD
[2018-02-19] MEDS: ALBUTEROL SO4 2.5/IPRATROPIUM 0.5 INH SOL 3 ML VIAL.NEB. NEB SCH ×2 (17:46→20:50)
[2018-02-19] MEDS: BUDESONIDE/FORMETEROL FUMARATE 160/4.5 mcg INHALER IH SCH ×2 (18:50→21:33)
[2018-02-19] MEDS: BENZOCAINE/MENTH/CETYLPYRD CL 1 EACH LOZENGE MM PRN (18:51)
[2018-02-19] MEDS ORDERED: PT OWN MED DRAWER 7, Y5N ONE (21:10)
[2018-02-19] MEDS: MONTELUKAST NA 10 MG TABLET PO SCH (21:33)
[2018-02-20] MEDS: BENZOCAINE/MENTH/CETYLPYRD CL 1 EACH LOZENGE MM PRN ×2 (05:24→20:33)
[2018-02-20] MEDS: HEPARIN NA (PORCINE) 5,000 UNITS/ML 1ML VIAL SQ SCH ×3 (05:24→21:04)
[2018-02-20 06:43] LABS: EOS % 6.1 % (0-4.5); HEMATOCRIT 39.2 % (35.4-49); LYMPH % 33.3 % (8-40); MCHC 33.2 g/dl (32.0-35.9); MEAN CELL VOLUME 84.4 fl (80-96); MONO % 14.2 % (3.8-10.2); NEUT % 45.4 % (42.8-82.8); PLATELET COUNT 246 K/MM3 (134-434); RBC 4.64 M/mm3 (4.00-5.60); RDW 14.4 % (11.9-15.9); WHITE BLOOD COUNT 6.3 K/mm3 (4.0-10.0)
[2018-02-20] MEDS: ALBUTEROL SO4 2.5/IPRATROPIUM 0.5 INH SOL 3 ML VIAL.NEB. NEB SCH ×3 (07:48→19:01)
--- NOTE | 2018-02-20 08:01 | PN ---
Teaching Attending Note Name of Resident: Vignesh Killian ATTENDING PHYSICIAN STATEMENT I saw and evaluated the patient. I reviewed the resident's note and discussed the case with the resident. I agree with the resident's findings and plan as documented with exceptions below. SUBJECTIVE: Patient seen and examined. cough improved, no new concerns. OBJECTIVE: Vital Signs Period Temp Pulse Resp BP Sys/Rodríguez Pulse Ox Last 24 Hr 97.6 F-98.8 F 56-92 18-20 112-133/59-79 95-96 Intake & Output 02/17/18 02/18/18 02/19/18 02/20/18 23:59 23:59 23:59 23:59 Intake Total 870 100 Output Total 500 Balance 370 100 Weight 278 lb 280 lb General: lying in bed in no acute distress Chest: CTAB, no rales or wheezing Neuro: AAOx3, unchanged exam Active Medications Albuterol/Ipratropium (Duoneb -) 1 amp NEB RTID [facility] Last Admin: 02/20/18 07:48 Dose: 1 amp Benzocaine/Menthol (Cepacol Lozenge -) 1 each MM Q4H PRN PRN Reason: SORE THROAT Last Admin: 02/20/18 05:24 Dose: 1 each Budesonide/Formoterol Fumarate (Symbicort 160/4.5mcg -) 2 puff IH BID [facility] Last Admin: 02/19/18 21:33 Dose: 2 puff Heparin Sodium (Porcine) (Heparin -) 5,000 unit SQ TID [facility] Last Admin: 02/20/18 05:24 Dose: 5,000 unit Montelukast Sodium (Singulair -) 10 mg PO HS [facility] Last Admin: 02/19/18 21:33 Dose: 10 mg Pantoprazole Sodium (Protonix -) 40 mg PO BID [facility] Last Admin: 02/19/18 21:33 Dose: 40 mg Laboratory Results - last 24 hr 02/19/18 02/20/18 18:45 05:30 WBC 6.3 RBC 4.64 Hgb 13.0 Hct 39.2 MCV 84.4 MCH 28.0 MCHC 33.2 RDW 14.4 Plt Count 246 MPV 9.0 Absolute Neuts (auto) 2.9 Neutrophils % 45.4 D Lymphocytes % 33.3 D Monocytes % 14.2 H Eosinophils % 6.1 H D Basophils % 1.0 Nucleated RBC % [address] chest results and images reviewed ASSESSMENT AND PLAN: 27 yom with chronic cough, GERD, syncopal episodes in the setting of severe coughing paroxysms. -Post tussive syncope -Chronic cough, likely from cough variant asthma (Pos eosinophilia) +/- GERD Plan: Cardiology/neurology/pulmonary input appreciated. symbicort. PPI. outpatient pulmonary/GI follow up. 2D echo noted. Discussed with Dr. Lees, rec stress test prior to d.c Telemetry with night time bradycardia and dropped beat, suspect from underlying SHANI> Will need outpatient sleep study and work up for narcolepsy. follow up EEG/holter. DVTPPX Dispo d/c in 24 hours if w/u unrevealing and no concerns. . Plan discussed with patient in detail, all questions answered.
[2018-02-20] MEDS: PANTOPRAZOLE 40 MG TABLET (FP) PO SCH ×2 (09:10→21:04)
[2018-02-20] MEDS: BUDESONIDE/FORMETEROL FUMARATE 160/4.5 mcg INHALER IH SCH ×2 (09:13→21:05)
[2018-02-20] MEDS ORDERED: PT OWN MED DRAWER 7, Y5N ONE ×2 (09:13→20:08)
--- NOTE | 2018-02-20 12:12 | PN ---
Progress Note, Physician History of Present Illness: 27 y/o M w/ PMH of long hx of syncopal episodes associated w/ cough, p/w productive cough, sore throat, subj fevers, chills, and a few episodes of NBNB emesis x3 days with recurrent syncope specifically occurring after coughing. Tonight has had 11 episodes each one lasing a few seconds as noted by family members. Has been having multiple coughing fits and tonight having generalized headache which started abruptly. He denies any h/o similar headaches. Also experiencing intermittent SOB associated with the cough and syncope, as well as nausea and dry heaves tonight, but he denies any CP, diarrhea, abd pain, urinary sxs, focal weakness, vision change, slurred speech, facial droop, neck pain Pt endorses a long hx of passing out w/ coughing fits, 1st time ~4years ago, and states that it runs in his family, both his dad and sister get it. His only recent medication has been diclofenac which he says he finished. Of note, pt says 3 wks ago he went to hospital in [place] after having had episode of dark bloody vomit. pt said he was working a lot that weekend and didnt have time to eat food but drank pplenty of liquids. he woke up vomited and then came to hospital. He says his FOBT was neg and they sent him home telling him he probably damaged a blood vessel and that he was throwing up dried blood. Pt endorses chronic heartburn. - Current Medication List Current Medications: Active Medications Albuterol/Ipratropium (Duoneb -) 1 amp NEB RTID [facility] Last Admin: 02/20/18 07:48 Dose: 1 amp Benzocaine/Menthol (Cepacol Lozenge -) 1 each MM Q4H PRN PRN Reason: SORE THROAT Last Admin: 02/20/18 05:24 Dose: 1 each Budesonide/Formoterol Fumarate (Symbicort 160/4.5mcg -) 2 puff IH BID [facility] Last Admin: 02/20/18 09:13 Dose: 2 puff Heparin Sodium (Porcine) (Heparin -) 5,000 unit SQ TID [facility] Last Admin: 02/20/18 05:24 Dose: 5,000 unit Montelukast Sodium (Singulair -) 10 mg PO HS [facility] Last Admin: 02/19/18 21:33 Dose: 10 mg Pantoprazole Sodium (Protonix -) 40 mg PO BID [facility] Last Admin: 02/20/18 09:10 Dose: 40 mg - Objective Vital Signs: Vital Signs Temperature 98 F 02/20/18 10:00 Pulse Rate 76 02/20/18 10:00 Respiratory Rate 18 02/20/18 10:00 Blood Pressure 156/90 02/20/18 10:00 O2 Sat by Pulse Oximetry (%) 97 02/20/18 10:00 Eyes: Yes: WNL, Conjunctiva Clear, EOM Intact HENT: Yes: WNL, Atraumatic, Normocephalic Neck: Yes: WNL, Supple, Trachea Midline Cardiovascular: Yes: WNL, Regular Rate and Rhythm Respiratory: Yes: WNL, Regular, CTA Bilaterally Gastrointestinal: Yes: WNL, Normal Bowel Sounds Genitourinary: Yes: WNL Musculoskeletal: Yes: WNL Extremities: Yes: WNL Edema: No Integumentary: Yes: WNL Neurological: Yes: WNL, Alert, Oriented ...Motor Strength: WNL Psychiatric: Yes: WNL Labs: CBC, BMP 02/20/18 05:30 02/19/18 06:00 INR, PTT INR 1.04 (0.83-1.09) 02/19/18 06:00 Problem List - Problems (1) Cough Code(s): R05 - COUGH (2) Nausea and vomiting Code(s): R11.2 - NAUSEA WITH VOMITING, UNSPECIFIED Qualifiers: Vomiting type: unspecified Vomiting Intractability: non-intractable Qualified Code(s): R11.2 - Nausea with vomiting, unspecified (3) Syncope Code(s): R55 - SYNCOPE AND COLLAPSE Qualifiers: Syncope type: unspecified Qualified Code(s): R55 - Syncope and collapse Assessment/Plan cough induced syncopy chronic cough plan telemetry 24 holter echo neuro eval pulmonary eval eeg pending
--- NOTE | 2018-02-20 12:37 | PN ---
Progress Note (short form) - Note Progress Note: Reports feeling overall better. No CP or SOB. Additional history: prolonged history of Excessive Daytime Sleepiness. Says he can sleep all day without feeling rested. (+) Snoring and possible witnessed apneas (His had OSAS). Reports episodes that almost sound like automatic behavior. Says that sometimes he will laugh then cough and then pass out. Intake & Output 02/17/18 02/18/18 02/19/18 02/20/18 23:59 23:59 23:59 23:59 Intake Total 870 100 Output Total 500 200 Balance 370 -100 Weight 278 lb 280 lb Last Vital Signs Temp Pulse Resp BP Pulse Ox 98 F 76 18 156/90 97 02/20/18 10:00 02/20/18 10:00 02/20/18 10:00 02/20/18 10:00 02/20/18 10:00 Active Medications Albuterol/Ipratropium (Duoneb -) 1 amp NEB RTID [facility] Last Admin: 02/20/18 07:48 Dose: 1 amp Benzocaine/Menthol (Cepacol Lozenge -) 1 each MM Q4H PRN PRN Reason: SORE THROAT Last Admin: 02/20/18 05:24 Dose: 1 each Budesonide/Formoterol Fumarate (Symbicort 160/4.5mcg -) 2 puff IH BID [facility] Last Admin: 02/20/18 09:13 Dose: 2 puff Heparin Sodium (Porcine) (Heparin -) 5,000 unit SQ TID [facility] Last Admin: 02/20/18 05:24 Dose: 5,000 unit Montelukast Sodium (Singulair -) 10 mg PO HS [facility] Last Admin: 02/19/18 21:33 Dose: 10 mg Pantoprazole Sodium (Protonix -) 40 mg PO BID [facility] Last Admin: 02/20/18 09:10 Dose: 40 mg Constitutional: Yes: NAD Eyes: Yes: Conjunctiva Clear, EOM Intact HENT: Yes: Atraumatic, Normocephalic Neck: Yes: Supple, Trachea Midline Cardiovascular: Yes: Regular Rate and Rhythm Respiratory: Yes: Regular, CTA Bilaterally ...Clubbing: No Gastrointestinal: Yes: Normal Bowel Sounds, Soft. No: Tenderness Edema: No Neurological: Yes: Alert, Oriented Labs: Laboratory Results - last 24 hr 08/05/18 08/06/18 18:45 05:30 WBC 6.3 RBC 4.64 Hgb 13.0 Hct 39.2 MCV 84.4 MCH 28.0 MCHC 33.2 RDW 14.4 Plt Count 246 MPV 9.0 Absolute Neuts (auto) 2.9 Neutrophils % 45.4 D Lymphocytes % 33.3 D Monocytes % 14.2 H Eosinophils % 6.1 H D Basophils % 1.0 Nucleated RBC % 0 Ammonia 29.06 Problem List - Problems (1) Cough Code(s): R05 - COUGH (2) Syncope Code(s): R55 - SYNCOPE AND COLLAPSE Qualifiers: Syncope type: unspecified Qualified Code(s): R55 - Syncope and collapse Assessment/Plan Syncopal episodes possibly due to vagal activation from prolonged coughing fit R/O Cough Variant Asthma Should R/O OSAS and even gives a history that could be Narcolepsy with Cataplexy - ICS/LABA - Singulair - Inhaled bronchodilators - Will need outpt PFTs and allergy testing - DVT prophylaxis - Should have formal NPSG with MSLT Dr Manjarrez
--- NOTE | 2018-02-20 13:16 | ECHO ---
Name: ALEJANDRA SALMERON Exam:Adult Echocardiogram Study Date: 02/20/2018 09:58 AM Age: 27 yrs Reason For Study: syncope/cardiomegaly Height: 72 in Weight: 278 lb BSA: 2.5 m2 MMode/2D Measurements & Calculations IVSd: 1.2 cm Ao root diam: 3.6 cm LVIDd: 5.8 cm LA dimension: 4.3 cm LVIDs: 3.6 cm LVPWd: 1.1 cm LVPWs: 2.2 cm EDV(Teich): 165.0 ml ESV(Teich): 54.0 ml Doppler Measurements & Calculations MV E max shahid: 66.1 cm/sec Ao V2 max: 129.6 cm/sec MV A max shahid: 73.5 cm/sec Ao max P.7 mmHg MV E/A: 0.90 MV dec time: 0.21 sec LV V1 max P.3 mmHg PA V2 max: 93.7 cm/sec LV V1 max: 103.7 cm/sec PA max P.5 mmHg PA acc slope: 161.9 cm/sec2 PA acc time: 0.37 sec Med Peak E' Shahid: 7.1 cm/sec PA pr(Accel): -85.8 mmHg Med E/e': 9.3 Lat Peak E' Shahid: 17.4 cm/sec Lat E/e': 3.8 Procedure The study was technically adequate with some images being suboptimal in quality. Left Ventricle The left ventricle is normal in size. There is mild concentric left ventricular hypertrophy. Left viri tricular systolic function is normal. Ejection Fraction = 60-65%. No regional wall motion abnormalities noted. Right Ventricle The right ventricle is normal size. The right ventricular systolic function is normal. Atria The left atrium is mildly dilated. Right atrial size is normal. Mitral Valve The mitral valve is normal in structure and function. There is no mitral regurgitation noted. Tricuspid Valve The tricuspid valve is normal in structure and function. There is mild tricuspid regurgitation. Aortic Valve The aortic valve is normal in structure and function. The aortic valve is trileaflet. The aortic valv e opens well. No aortic regurgitation is present. Pulmonic Valve The pulmonic valve is not well visualized. Trace pulmonic valvular regurgitation. Great Vessels The aortic root is normal size. Pericardium/Pleura There is no pericardial effusion. Interpretation Summary The left ventricle is normal in size. There is mild concentric left ventricular hypertrophy. Left ventricular systolic function is normal. No regional wall motion abnormalities noted. Ejection Fraction = 60-65%. The right ventricular systolic function is normal. The left atrium is mildly dilated. Right atrial size is normal. There is mild tricuspid regurgitation. Trace pulmonic valvular regurgitation. There is no pericardial effusion. Previous study is not available for comparison Matt Arreaga MD 02/20/2018 01:15 PM
[2018-02-20] MEDS ORDERED: FUROSEMIDE 40 MG/4 ML INJECTABLE VIAL IVPUSH ONE (14:39)
--- NOTE | 2018-02-20 16:01 | PN ---
Physical Exam: SUBJECTIVE: Patient seen and examined OBJECTIVE: Vital Signs Period Temp Pulse Resp BP Sys/Rodríguez Pulse Ox Last 24 Hr 97.6 F-98.8 F 56-92 18-20 112-156/59-90 95-97 GENERAL: The patient is awake, alert, and fully oriented, in no acute distress. HEAD: Normal with no signs of trauma. EYES: PERRL, extraocular movements intact, sclera anicteric, conjunctiva clear. No ptosis. ENT: Ears normal, nares patent, oropharynx clear without exudates, moist mucous membranes. NECK: Trachea midline, full range of motion, supple. LUNGS: Breath sounds equal, clear to auscultation bilaterally, no wheezes, no crackles, no accessory muscle use. HEART: Regular rate and rhythm, S1, S2 without murmur, rub or gallop. ABDOMEN: Soft, nontender, nondistended, normoactive bowel sounds, no guarding, no rebound, no hepatosplenomegaly, no masses. EXTREMITIES: 2+ pulses, warm, well-perfused, no edema. NEUROLOGICAL: Cranial nerves II through XII grossly intact. Normal speech, gait not observed. PSYCH: Normal mood, normal affect. SKIN: Warm, dry, normal turgor, no rashes or lesions noted Laboratory Results - last 24 hr 02/19/18 02/20/18 18:45 05:30 WBC 6.3 RBC 4.64 Hgb 13.0 Hct 39.2 MCV 84.4 MCH 28.0 MCHC 33.2 RDW 14.4 Plt Count 246 MPV 9.0 Absolute Neuts (auto) 2.9 Neutrophils % 45.4 D Lymphocytes % 33.3 D Monocytes % 14.2 H Eosinophils % 6.1 H D Basophils % 1.0 Nucleated RBC % 0 Ammonia 29.06 Active Medications Generic Name Dose Route Start Last Admin Trade Name Freq PRN Reason Stop Dose Admin Albuterol/Ipratropium 1 amp 02/19/18 14:14 02/20/18 14:12 Duoneb - NEB 1 amp RTID EMANI Administration Benzocaine/Menthol 1 each 02/19/18 17:41 02/20/18 05:24 Cepacol Lozenge - MM 1 each Q4H PRN Administration SORE THROAT Budesonide/Formoterol Fumarate 2 puff 02/19/18 15:00 02/20/18 09:13 Symbicort 160/4.5mcg - IH 2 puff BID EMANI Administration Heparin Sodium (Porcine) 5,000 unit 02/19/18 03:00 02/20/18 13:27 Heparin - SQ 5,000 unit TID EMANI Administration Montelukast Sodium 10 mg 02/19/18 22:00 02/19/18 21:33 Singulair - PO 10 mg HS EMANI Administration Pantoprazole Sodium 40 mg 02/19/18 10:00 02/20/18 09:10 Protonix - PO 40 mg BID EMANI Administration ASSESSMENT/PLAN: 27 y/o M w/ PMH of syncopal episodes associated w/ cough p/w productive cough, sore throat, subj fevers and a few episodes of NBNB emesis x3 days with recurrent syncope specifically occurring after coughing #Syncope - unclear etiology, but likely vasovagal. CXR shows cardiomegaly, increased interstitial marking, RLL infiltrate and blunted angles. Head CT scan is negative. EKG does not show any significant abnormality. -chest CT to r/o infectious cause -ECHO - nl -monitor on telemetry. -Carotid doppler - nl -pulm, neurology and cardiology consults. -stress test tomorrow -Brain MRI/MRA not indicated, neuro recs appreciated -f/u EEG read #Chronic cough - likely from cough variant asthma (pos eosinophilia). GERD may contribute -high dose ICS/LABA daily -singulair -inhaled bronchodilators -will need outpt PFTs and allergy testing GERD -protonix 40mg bid #Obesity -provide assistance, counseling and positive reinforcement to facilitate weight loss. -Consult beef tagger #FEN -no IVF -replete lytes as needed -regular diet #DVTppx SQH 5000U TID #Dispo -tele -Full code -dc likely 24-48hr pending stress test and EEG read Visit type - Emergency Visit Emergency Visit: Yes ED Registration Date: 02/18/18 Care time: The patient presented to the Emergency Department on the above date and was hospitalized for further evaluation of their emergent condition. - New Patient This patient is new to me today: Yes Date on this admission: 02/20/18 - Critical Care Critical Care patient: No
[2018-02-20] MEDS ORDERED: ACETAMINOPHEN 325 MG TABLET (FP) PO PRN (20:01)
[2018-02-20] MEDS: MONTELUKAST NA 10 MG TABLET PO SCH (21:04)
[2018-02-21] MEDS: BENZOCAINE/MENTH/CETYLPYRD CL 1 EACH LOZENGE MM PRN (01:50)
[2018-02-21] MEDS: HEPARIN NA (PORCINE) 5,000 UNITS/ML 1ML VIAL SQ SCH ×2 (06:30→14:02)
[2018-02-21] MEDS: ALBUTEROL SO4 2.5/IPRATROPIUM 0.5 INH SOL 3 ML VIAL.NEB. NEB SCH ×2 (07:22→14:06)
--- NOTE | 2018-02-21 08:37 | PN ---
Progress Note, Physician History of Present Illness: This is a 27 YOM who p/w nonproductive cough x2 days with recurrent syncope tonight after coughing fits, now with 10/10 generalized headache which started abruptly. He denies any h/o similar headaches. His only recent medication has been diclofenac which he started in the past couple of days. He additionally notes intermittent SOB associated with the cough and syncope, as well as nausea and dry heaves tonight, but he denies any recent f/c, d/c, n/t/focal weakness, vision change, slurred speech, facial droop, neck pain, chest pain, palpitations , falls/injuries, or other symptoms. - Current Medication List Current Medications: Active Medications Acetaminophen (Tylenol -) 650 mg PO Q6H PRN PRN Reason: Pain Last Admin: 02/20/18 20:32 Dose: 650 mg Albuterol/Ipratropium (Duoneb -) 1 amp NEB RTID [facility] Last Admin: 02/20/18 19:01 Dose: 1 amp Benzocaine/Menthol (Cepacol Lozenge -) 1 each MM Q4H PRN PRN Reason: SORE THROAT Last Admin: 02/21/18 01:50 Dose: 1 each Budesonide/Formoterol Fumarate (Symbicort 160/4.5mcg -) 2 puff IH BID [facility] Last Admin: 02/20/18 21:05 Dose: 2 puff Heparin Sodium (Porcine) (Heparin -) 5,000 unit SQ TID [facility] Last Admin: 02/21/18 06:30 Dose: 5,000 unit Montelukast Sodium (Singulair -) 10 mg PO HS [facility] Last Admin: 02/20/18 21:04 Dose: 10 mg Pantoprazole Sodium (Protonix -) 40 mg PO BID [facility] Last Admin: 02/20/18 21:04 Dose: 40 mg - Objective Vital Signs: Vital Signs Temperature 97.5 F L 02/21/18 06:00 Pulse Rate 52 L 02/21/18 06:00 Respiratory Rate 16 02/21/18 06:00 Blood Pressure 132/79 02/21/18 06:00 O2 Sat by Pulse Oximetry (%) 96 02/20/18 22:00 Labs: CBC, BMP 02/20/18 05:30 02/19/18 06:00 INR, PTT INR 1.04 (0.83-1.09) 02/19/18 06:00 Problem List - Problems (1) Cough Code(s): R05 - COUGH (2) Nausea and vomiting Code(s): R11.2 - NAUSEA WITH VOMITING, UNSPECIFIED Qualifiers: Vomiting type: unspecified Vomiting Intractability: non-intractable Qualified Code(s): R11.2 - Nausea with vomiting, unspecified (3) Syncope Assessment/Plan: Pt says the episodes, which started about 5 years ago, occur under two circumstances: 1. He starts laughing, then coughs, then faints. 2. Simply coughing can also cause a fainting spell. No hx in family of sudden cardiac . Carotid Doppler: no pathology. ECHO: normal LVEF; mild LVH. Holter pending.If unremarkable, he will be followed as an outpatient, and seen by Dr. David Goldstein, billiard parlor manager. Pt will undergo stress treadmill ECHO today. Code(s): R55 - SYNCOPE AND COLLAPSE Qualifiers: Syncope type: unspecified Qualified Code(s): R55 - Syncope and collapse (4) Atypical chest pain Code(s): R07.89 - OTHER CHEST PAIN (5) Obesity Assessment/Plan: Pt weighed as much as 310 lbs; now in the 270s through "exercise". He does not drink sodas, but drinks "a lot" of juices.He plans to cut down on this now. He also eatsw "a big breakfast, an even bigger lunch, and a really big dinner", as well as snacks. Dietary consult would be of benefit. F/u TSH, lipids. Code(s): E66.9 - OBESITY, UNSPECIFIED
[2018-02-21] MEDS: BUDESONIDE/FORMETEROL FUMARATE 160/4.5 mcg INHALER IH SCH (10:03)
[2018-02-21] MEDS: PANTOPRAZOLE 40 MG TABLET (FP) PO SCH (10:03)
[2018-02-21 10:25] VITALS: TEMP 98
[2018-02-21 12:19] LABS: CHOLESTEROL 169 mg/dL (50-200); HDL CHOLESTEROL 46 mg/dL (40-60); TRIGLYCERIDES 99 mg/dL (35-160)
--- NOTE | 2018-02-21 14:10 | PN ---
Progress Note (short form) - Note Progress Note: Reports feeling overall better. Had some left sided chest discomfort this AM. Intake & Output 02/18/18 02/19/18 02/20/18 02/21/18 23:59 23:59 23:59 23:59 Intake Total 870 230 300 Output Total 500 200 Balance 370 30 300 Weight 278 lb 280 lb Last Vital Signs Temp Pulse Resp BP Pulse Ox 98 F 64 18 127/74 98 02/21/18 10:00 02/21/18 10:00 02/21/18 10:00 02/21/18 10:00 02/21/18 10:00 Active Medications Acetaminophen (Tylenol -) 650 mg PO Q6H PRN PRN Reason: Pain Last Admin: 02/20/18 20:32 Dose: 650 mg Albuterol/Ipratropium (Duoneb -) 1 amp NEB RTID [facility] Last Admin: 02/21/18 07:22 Dose: Not Given Benzocaine/Menthol (Cepacol Lozenge -) 1 each MM Q4H PRN PRN Reason: SORE THROAT Last Admin: 02/21/18 01:50 Dose: 1 each Budesonide/Formoterol Fumarate (Symbicort 160/4.5mcg -) 2 puff IH BID [facility] Last Admin: 02/21/18 10:03 Dose: 2 puff Heparin Sodium (Porcine) (Heparin -) 5,000 unit SQ TID [facility] Last Admin: 02/21/18 14:02 Dose: 5,000 unit Montelukast Sodium (Singulair -) 10 mg PO HS [facility] Last Admin: 02/20/18 21:04 Dose: 10 mg Pantoprazole Sodium (Protonix -) 40 mg PO BID [facility] Last Admin: 02/21/18 10:03 Dose: 40 mg Constitutional: Yes: NAD Eyes: Yes: Conjunctiva Clear, EOM Intact HENT: Yes: Atraumatic, Normocephalic Neck: Yes: Supple, Trachea Midline Cardiovascular: Yes: Regular Rate and Rhythm Respiratory: Yes: Regular, CTA Bilaterally ...Clubbing: No Gastrointestinal: Yes: Normal Bowel Sounds, Soft. No: Tenderness Edema: No Neurological: Yes: Alert, Oriented Labs: Laboratory Results - last 24 hr 02/20/18 02/21/18 02/21/18 05:30 10:07 10:07 Triglycerides 99 Cholesterol 169 Total LDL Cholesterol 100 HDL Cholesterol 46 TSH 0.90 Prolactin 9.4 Problem List - Problems (1) Cough Code(s): R05 - COUGH (2) Syncope Code(s): R55 - SYNCOPE AND COLLAPSE Qualifiers: Syncope type: unspecified Qualified Code(s): R55 - Syncope and collapse Assessment/Plan Syncopal episodes possibly due to vagal activation from prolonged coughing fit R/O Cough Variant Asthma Should R/O OSAS and he even gives a history that could be Narcolepsy with Cataplexy - ICS/LABA - Singulair - Inhaled bronchodilators - Will need outpt PFTs and allergy testing - DVT prophylaxis - Should have formal NPSG with [facility] - No Pulmonary contraindication for D/C Dr Manjarrez
--- NOTE | 2018-02-21 14:44 | HOL ---
Hook-up date: 2018-02-19 14:40:00 Duration: 23:21:00 Test Indications: SYNCOPE Medications: 162109 QRS complexes 7 Ventricular ectopics which represent <1 % of total QRS comp. 29 Supraventricular ectopics which represent <1 % of total QRS comp. * Paced QRS complexs which represent % of total QRS comp. * % of Time Classified as Noise VENTRICULAR ECTOPY 7 Isolated 0 Bigeminal Cycles 0 Couplets 0 Runs 0 Beats in Runs * Beats LONGEST at * BPM at :: -- * Beats FASTEST at * BPM at :: -- SUPRAVENTRICULAR ECTOPY 27 Isolated 1 Couplets 0 Runs 0 Beats in Runs * Beats LONGEST at * BPM at :: -- * Beats FASTEST at * BPM at :: -- HEART RATES 47 MIN at 07:42:34 2018-02-20 74 AVG 125 MAX at 09:45:46 2018-02-20 LONGEST RR 2.152 secs at 02:18:53 2018-02-20 SCANNED BY OMERO NASH ON 02/21/18 Normal sinus rhythm throughout (47-125 BPM, Average HR 74BPM.) Frequent APC's, VPC's. No VT or pauses. Periods of sinus tachycardia. One nonconducted P wave. Confirmed by Sharon ROMERO, Alphonso ([id number]) on 02/21/2018 2:43:31 PM Referred By: BECCA SINGH DR Overread By: Alphonso Herrera MD
--- NOTE | 2018-02-21 16:25 | EKG ---
Test Reason : Blood Pressure : / mmHG Vent. Rate : 070 BPM Atrial Rate : 070 BPM P-R Int : 166 ms QRS Dur : 096 ms QT Int : 396 ms P-R-T Axes : 025 -07 004 degrees QTc Int : 427 ms NORMAL SINUS RHYTHM MINIMAL VOLTAGE CRITERIA FOR LVH, MAY BE NORMAL VARIANT BORDERLINE ECG WHEN COMPARED WITH ECG OF 19-FEB-2018 00:42, NO SIGNIFICANT CHANGE WAS FOUND Confirmed by Alphonso Herrera MD ([id number]) on 02/21/2018 4:24:54 PM Referred By: Corby BARRETO Confirmed By:Alphonso Herrera MD
[2018-02-21 16:29] VITALS: BP 130/70; PULSE 70
--- NOTE | 2018-02-21 16:50 | PN ---
Teaching Attending Note Name of Resident: Vignesh Killian ATTENDING PHYSICIAN STATEMENT I saw and evaluated the patient. I reviewed the resident's note and discussed the case with the resident. I agree with the resident's findings and plan as documented. SUBJECTIVE:asymptomatic. no recurrent coughing fits or syncopal episodes. dneies Cp, SOB, fever, chills, N/V/C/D OBJECTIVE: Last Vital Signs Temp Pulse Resp BP Pulse Ox 98 F 70 16 130/70 98 02/21/18 14:00 02/21/18 14:00 02/21/18 14:00 02/21/18 14:00 02/21/18 10:00 General NAD ASSESSMENT AND PLAN: 27 yo M with chronic cough, GERD, syncopal episodes in the setting of severe coughing paroxysms. 1. Post tussive syncope- however can not r/o narcolepsy. no events while in the hospital. workup here done. Holter monitor, chest CT, carotid doppler, Head CT, Head CTA all negative.Stress echo done and awaiting results. pt would benefit from sleep study to r/o narcolepsy. and possible MRI. EEG done here and not available. 2. Chronic cough, likely from cough variant asthma (Pos eosinophilia) +/- GERD- started on singulair, symbicort, PPI trial. should have formal PFT and NPIST and MST testing done as outpatient 3. d/c home pending results of stress test. talked in detail with patient regarding follow up. Pt plans to return to [place] where he now lives to have workup done. 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 encouraged him to find alternative means of getting home. verbalized understanding
--- NOTE | 2018-02-21 17:05 | ECHO ---
Name: SALMERON, ALEJANDRA Exam:Stress Echocardiogram Study Date: 02/21/2018 11:11 AM Age: 27 yrs Reason For Study: Chest pain Height: 72 in Weight: 280 lb BSA: 2.5 m2 Procedure Details: Exercise Stress Echocardiogram with 2D imaging. Stress Comments Normal resting electrocardiogram. A treadmill exercise test according to Rebecca protocol was performed. The patient exercised on a treadmill using the standard rebecca protocol for 9:49 minutes, achieving 85 % MPHR, achieving 11.40 METS. The blood pressure went from 132/89 to 146/90 mmHg. There were no ECG changes. Maximum Heart Rate achieved was 85-90% of maximum age-predicted heart rate. The patient exhibited fatigue during exercise. Total Stress Time was 9-10 minutes. Left Ventricle The left ventricle is normal in size. There is normal left ventricular wall thickness. The left ventricle is normal in structure and function. Exercise Echocardiogram Negative exercise stress echocardiogram, adequate by heart rate criteria, without symptoms, diagnosti c EKG changes or echocardiographic evidence of ischemia. Interpretation Summary The left ventricle is normal in structure and function. The patient exercised on a treadmill using the standard rebecca protocol for 9:49 minutes, achieving 85 % MPHR, achieving 11.40 METS. The blood pressure went from 132/89 to 146/90 mmHg. There were no ECG changes. Negative exercise stress echocardiogram, adequate by heart rate criteria, without symptoms, diagnosti c EKG changes or echocardiographic evidence of ischemia Reading Physician: MD Alphonso Herrera 02/21/2018 05:04 PM
--- NOTE | 2018-02-21 18:04 | DS ---
Physical Exam: SUBJECTIVE: pt seen and examined at bedside. no acute events overnight. no complaints. cough and sore throat have improved. pt feeling much better. OBJECTIVE: Vital Signs Period Temp Pulse Resp BP Sys/Rodríguez Pulse Ox Last 24 Hr 97.5 F-98.7 F 52-88 16-18 111-132/64-81 96-98 PHYSICAL EXAM GENERAL: Awake, alert, and fully oriented, NAD. HEENT: NCAT, PERRL, extraocular movements intact, sclera anicteric, conjunctiva clear. MMM NECK: Normal range of motion, supple without lymphadenopathy, JVD, or masses. LUNGS: CTAB. No wheezes. No accessory muscle use. HEART: RRR, normal S1 and S2 without m/r/g ABDOMEN: Soft, NTND +BS, no guarding, no rebound, no masses. MUSCULOSKELETAL: Normal range of motion at all joints. No bony deformities or tenderness. UPPER EXTREMITIES: 2+ pulses, warm, well-perfused. No cyanosis. No clubbing. No peripheral edema. LOWER EXTREMITIES: 2+ pulses, warm, well-perfused. No calf tenderness. no edema NEUROLOGICAL: Cranial nerves II-XII intact. Normal speech. gait not observed PSYCHIATRIC: Cooperative. Good eye contact. Appropriate mood and affect. SKIN: Warm, dry, normal turgor, no rashes or lesions noted, normal capillary refill. LABS Laboratory Results - last 24 hr 02/20/18 02/21/18 02/21/18 05:30 10:07 10:07 Triglycerides 99 Cholesterol 169 Total LDL Cholesterol 100 HDL Cholesterol 46 TSH 0.90 Prolactin 9.4 HOSPITAL COURSE: Date of Admission:02/18/18 Date of Discharge: 02/21/18 27 y/o M w/ PMH and strong family hx of syncopal episodes associated w/ cough p/ w productive cough, sore throat, subj fevers and a few episodes of NBNB emesis x3 days with recurrent syncope specifically occurring after coughing Admitted for Post tussive syncope 2/2 vasovagal, however can not r/o narcolepsy . Pt was admitted to [facility] and was monitored. Holter monitor,Head CT, CT chest, echo, carotid doppler, EKG, did not show any significant abnormalities. Pt was noted to have missed beat on [facility] and was further evaulated w/ stres test which came back wnl. EEG was done as well. pt would benefit from sleep study to r/o narcolepsy. Pt was evaluated by pulm consult. Pt has had chronic cough and was found with pos eosinophilia c/w cough variant asthma. Pt was started on high dose ICS/LABA , singulair, and inhaled bronchodilators. pt will need will need outpt PFTs and allergy testing. Pt was also stated on protonix for hx of GERD, which may be contributing to his cough. Pt plans to return to [place] where he now lives to have workup done. pt educated on the concern driving given events of passing out and threat he poses on himself and his passengers. encouraged to find other means of travel. Pt is stable and ready for discharge. . Minutes to complete discharge: 35 Discharge Summary Reason For Visit: COUGH/SYNCOPE/NAUSEA AND VOMITING Current Active Problems Obesity (Chronic) Syncope (Chronic) Condition: Critical - Instructions Diet, Activity, Other Instructions: You were admitted to the hospital because you passed out while coughing. You need to have further testing. You need to have a pulmonary functioning testing, sleep apnea, formal NPSG and MSLT. We gave you medicine for asthma and heart burn and your cough/sore throat improved. We also monitored your heart and did an ultrasound of your heart both of which were normal. You may have sleep apnea and should follow up with pulmonary doctor for a Sleep study We monitored your brain activity. please follow up with Dr. Hirsch, the neurologist in the hospital who saw you regarding these results. Please avoid driving until you have followed up with these exams. We have started you on 3 new medications called symbicort, albuterol, singular for your asthma. We have started you on a new medication called protonix(pantoprazole) for your heart burn Please follow up with cardiology [employer] Dr. David Daley who is the chief of cardiology at [facility] ([place]) for further monitoring of your heart. please call [phone] to schedule an appointment Please follow up with your primary care physician in 1 week. Please follow up with a zanjero, public finance specialist and neurologist. Please request your doctor to make referrals in [place] If you notice any chest pain, weakness, shortness of breath, seizure activity including passing out, incontinence, confusion, uncontrolled tongue biting or worsening of passing out episodes please come to the ER or call 911 immediately Referrals: Malendowicz,Rafy L, MD [Staff Physician] - 1 Week Tulio Manjarrez MD [Staff Physician] - Estela Hirsch MD [Staff Physician] - 1 Week Disposition: HOME - Home Medications Comprehensive Discharge Medication List: Ambulatory Orders Acetaminophen [Tylenol .Regular Strength -] 650 mg PO Q6H PRN tablet 02/21/18 Albuterol Sulfate Inhaler - [Ventolin HFA Inhaler -] 1 puff IH BID #1 inhaler Budesonide/Formeterol Fumarate [SYMBICORT 160/4.5mcg -] 2 puff IH BID #1 inhaler 02/21/18 Montelukast Na [Singulair -] 10 mg PO HS 30 Days #30 tablet 02/21/18 Pantoprazole Sodium [Protonix -] 40 mg PO DAILY 30 Days #30 tablet.ec 02/21/18 This patient is new to me today: Yes Date on this admission: 02/21/18 Emergency Visit: Yes ED Registration Date: 02/18/18 Care time: The patient presented to the Emergency Department on the above date and was hospitalized for further evaluation of their emergent condition. Critical Care patient: No - Discharge Referral Referred to [facility] Med P.C.: No
== END 2018-02-21 19:07 | disposition home or self-care (01) ==
LOC: JER 20:11 → INTOOBSV 23:34 → JERBED 23:34 → J4W 02-19 16:57
PROVIDERS: ADMIT Internal Medicine; ATTEND Internal Medicine
PROC: 3E033NZ Introduction of Analgesics, Hypnotics, Sedatives into Peripheral Vein, Percutaneous Approach (ICD-10-PCS; principal; 2018-02-18)
PROC: 3E013GC Introduction of Other Therapeutic Substance into Subcutaneous Tissue, Percutaneous Approach (ICD-10-PCS; 2018-02-18)
PROC: 3E0337Z Introduction of Electrolytic and Water Balance Substance into Peripheral Vein, Percutaneous Approach (ICD-10-PCS; 2018-02-18)
PROC: 3E0F7GC Introduction of Other Therapeutic Substance into Respiratory Tract, Via Natural or Artificial Opening (ICD-10-PCS; 2018-02-18)
DX: R55 Syncope and collapse (principal); R51 Headache; R11.2 Nausea with vomiting, unspecified; Z77.22 Contact with and (suspected) exposure to environmental tobacco smoke (acute) (chronic); K21.9 Gastro-esophageal reflux disease without esophagitis; E66.9 Obesity, unspecified; Z68.38 Body mass index [BMI] 38.0-38.9, adult
CPT/HCPCS: 36415; 70450-TC; 70496-TC; 71045-TC-FY; 71250-TC; 80053; 80061; 80307; 82140; 83721; 83735; 84100; 84146; 84443; 85025; 85610; 85730; 86850; 86900; 86901; 93005; 93010; 93225; 93226; 93306-TC; 93351; 93880-TC; 94640; 95816; 99285-25; G0378; J0131; J1644; J7030; J7620

== ENCOUNTER 2024-07-11 10:47 | Emergency (ER) | payer BC, OTHER ==
[2024-07-11 11:08] VITALS: BP 130/86; PULSE 64; RESP 18; TEMP 98.6; BMI 40.2
[2024-07-11 11:33] LABS: HEMATOCRIT 44.1 % (35.4-49); HEMOGLOBIN 14.1 G/dL (11.7-16.9); MCH 26.3 pg (25.7-33.7); MCHC 31.9 g/dl (32.0-35.9); MEAN CELL VOLUME 82.5 fl (80-96); MEAN PLT VOLUME 9.1 fl (7.5-11.1); PLATELET COUNT 287.3 10^3/uL (134-434); RBC 5.35 10^6/uL (4.00-5.60); RDW 15.5 % (11.9-15.9); WHITE BLOOD COUNT 8.6 10^3/uL (4.0-10.8)
[2024-07-11 11:36] LABS: PLATELET ESTIMATE ADEQUATE
[2024-07-11 11:40] LABS: ALBUMIN 4.6 g/dl (3.4-5.0); BILIRUBIN,TOTAL 0.5 mg/dl (0.2-1); CALCIUM 9.3 mg/dl (8.5-10.1); CREATININE 0.9 mg/dl (0.6-1.3); POTASSIUM 4.2 mmol/L (3.5-5.1); TOT PROT 7.4 g/dl (6.4-8.2)
== END 2024-07-11 12:31 | disposition home or self-care (01) ==
LOC: FER 10:47
DX: R07.89 Other chest pain (principal); J06.9 Acute upper respiratory infection, unspecified; R05.9 Cough, unspecified; Z20.822 Contact with and (suspected) exposure to COVID-19
CPT/HCPCS: 0241U-QW; 36415; 71046-TC-FY; 80053; 84484; 85027; 86803; 93005; 99285-25

== ENCOUNTER 2024-08-05 10:11 | Emergency (ER) | payer OTHER ==
[2024-08-05 10:21] VITALS: BP 134/84; PULSE 79; RESP 18; TEMP 98.6; BMI 43.4
[2024-08-05] MEDS ORDERED: KETOROLAC TROMETHAMINE 15 MG/ML VIAL ONE (10:23)
[2024-08-05] MEDS ORDERED: ACETAMINOPHEN 500 MG TABLET (FP) ONE (10:23)
[2024-08-05] MEDS: KETOROLAC TROMETHAMINE 15 MG/ML VIAL IM ONE (10:30)
[2024-08-05] MEDS: ACETAMINOPHEN 500 MG TABLET (FP) PO ONE (10:31)
== END 2024-08-05 11:16 | disposition home or self-care (01) ==
LOC: FER 10:11
PROC: 3E0233Z Introduction of Anti-inflammatory into Muscle, Percutaneous Approach (ICD-10-PCS; principal; 2024-08-05)
DX: M54.50 Low back pain, unspecified (principal)
CPT/HCPCS: 99284-25

== ENCOUNTER 2024-11-16 20:04 | Emergency (ER) | payer OTHER ==
[2024-11-16] MEDS ORDERED: KETOROLAC TROMETHAMINE 60 MG/2 ML VIAL ONE (20:35)
[2024-11-16 20:38] VITALS: BP 119/75; PULSE 78; RESP 18; TEMP 98.6; BMI 50.1
[2024-11-16] MEDS: KETOROLAC TROMETHAMINE 60 MG/2 ML VIAL IM ONE (20:39)
[2024-11-16] MEDS: ACETAMINOPHEN 500 MG TABLET (FP) PO ONE (20:39)
== END 2024-11-16 21:58 | disposition home or self-care (01) ==
LOC: FER 20:04
PROC: 3E0233Z Introduction of Anti-inflammatory into Muscle, Percutaneous Approach (ICD-10-PCS; principal; 2024-11-16)
DX: M79.672 Pain in left foot (principal); G89.29 Other chronic pain
CPT/HCPCS: 36415; 73630-TC-LT; 84550; 99284-25